=== PATIENT | female | born 1940 | race Caucasian/White ===

== ENCOUNTER → 2016-06-24 | Day surgery (SDC) | payer BC ==
[~2016-06-24] MED LIST: BUPIVACAINE/EPINEPHRINE 0.25% PF 10 ML VIAL ONE; KETOROLAC TROMETHAMINE 30 MG/ML (IVP) VIAL IV PUSH ONE; LACTATED RINGER'S 1000 ML INJ 1,000 ML ONE; ONDANSETRON HCL 4 MG/2 ML VIAL IV PUSH ONE; PROPOFOL 200 MG/20 ML AMP IV ONE; VANCOMYCIN 500 MG VIAL ONE
--- NOTE | 2016-06-24 15:46 | TN ---
cc: GHASSAN LANCE MD DATE OF SURGERY: 06/24/2078 PREOPERATIVE DIAGNOSIS Left knee torn medial meniscus. POSTOPERATIVE DIAGNOSIS Left knee torn medial meniscus. PROCEDURE Left knee arthroscopy, partial medial meniscectomy. PROCEDURE IN DETAIL Informed consent was obtained, the patient was taken to the operating room, placed in the supine position on the table. She was administered general anesthesia by Dr. Reyes of the Anesthesia Department. At that time a tourniquet applied. The left thigh, left leg was wrapped with Betadine soap, Betadine paint. Draping commenced in standard fashion with sterile down sheet sterile U drape, sterile stockinette over the foot and calf. This was wrapped with Coban and an extremity drape was applied. A time-out was held and confirmed the leg was elevated and the table was elevated maximum height. The tourniquet inflated to 300 mmHg. The leg was allowed to flex over the side of the operating table. The patient had been given vancomycin preoperatively prior to initiation operative procedure at that time an 18 gauge spinal needle was placed in the region of the lateral infrapatellar portal and this region was infiltrated 4 cc of 0.25% Marcaine with epinephrine. Next the trans patellar tendon portal region was infiltrated with 4 mL of 0.25% Marcaine without epinephrine and the medial infrapatellar portal region was also infiltrated a small incision was made with 11-blade in the region of the trans patellar tendon portal and an inflow cannula was placed second incision was placed. The region of the lateral patellar portal. The arthroscopic cannula was placed on a slow arthroscopy commenced the medial compartment examined. The anterior and straight medial portion of the meniscus appeared intact. However as the additional meniscus was visualized by opening up the medial compartment with abduction external rotation against a side post on the operating table. A complex tear was seen posteriorly there was a large radial tear where there was a medial flap over a lateral flap. Probing this tear demonstrates at both had a some degree Parrot beak tear component to the tears. Utilizing upbiting basket forceps and the Striker meniscal shaver. The meniscus was shaped a stable rim. This included removing almost all of zone one and about half of zone two of the medial meniscus. The rest the meniscus was tapered. There were some mild degenerative changes noted medial femoral condyle, medial tibial plateau. The scope was then maneuvered over the intercondylar notch edge of the lateral compartment leg was placed in a four position. 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 There were no tears identified throughout the meniscus. No significant where changes were noted on lateral femoral condyle. The scope was placed intercondylar notch. His leg was flexed into pressure cruciate ligaments appeared normal. The scope could not be easily passed to the post the medial posterior lateral compartments scope was placed in suprapatellar pouch which appeared normal. 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 There were no pathologic plica seen at that time and the knee was thoroughly irrigated and suctioned all cannulas were removed. Each portal was closed with single 4-0 nylon interrupted stitch. Band-Aids, 4x4s, soft roll and Tiago wrap were applied to the patient's knee at that time the tourniquet was deflated. Total tourniquet time was 36 minutes. The patient thought procedure was taken to room in stable condition at the completion of the procedure sponge and counts, needle counts were correct. Estimated blood loss was less than 10 cc. MD ALBERTO Blake/dillon /3:04 PM /3:21 PM
== END | disposition home or self-care (01) ==
LOC: ESDC 12:07
PROVIDERS: ATTEND Orthopaedic Surgery
DX: S83.232A Complex tear of medial meniscus, current injury, left knee, initial encounter (principal)
CPT/HCPCS: 01400; 29881; J1885; J2405; J3010; J3370; J7120